=== PATIENT | male | born 1955 | race Two or more races ===

== ENCOUNTER 2016-10-17 18:13 | Emergency (ER) | payer OTHER ==
[~2016-10-17] VITALS: Ht 167.6 cm; Wt 90.0 kg
[2016-10-17 18:27] VITALS: BP 127/76
== END 2016-10-17 18:42 | disposition home or self-care (01) | DRG 951 ==
LOC: ED 18:13
DX: Z20.811 Contact with and (suspected) exposure to meningococcus (principal)